=== PATIENT | male | born 2000 | race Two or more races ===

== ENCOUNTER 2021-03-15 11:15 | Emergency (ER) | payer OTHER ==
[~2021-03-15 11:15] MED LIST: CYCLOBENZAPRINE5 MG PO; DELSYM30 MG/5 ML PO; FLONASE 0.05% N16 GM; IBUPROFEN600 MG PO; IBUPROFEN800 MG PO; KEFLEX CAP 500500 MG PO; NORFLEX 100 MG100 MG PO; Voltaren Gel 1 % TOP; ZOFRAN ODT 4 MG4 MG PO; ZYRTEC10 MG PO
[2021-03-15 11:40] LABS: HEMOGLOBIN 15.8 gm/dl (14.0-17.5); RED BLOOD COUNT 4.64 M/UL (4.20-5.50); WHITE BLOOD COUNT 15.3 K/UL (4.5-11.0)
[2021-03-15 12:17] LABS: BUN/CREATININE RATIO 12 (0-10)
[2021-03-15] MEDS ORDERED: ZITHROMAX250 MG PO (13:03)
== END 2021-03-15 13:36 | disposition home or self-care (01) ==
LOC: ER1 11:15
PROVIDERS: Emergency Medicine
DX: R05 Cough (principal); R07.9 Chest pain, unspecified; D72.829 Elevated white blood cell count, unspecified; F17.200 Nicotine dependence, unspecified, uncomplicated; Z20.822 Contact with and (suspected) exposure to COVID-19
CPT/HCPCS: 71045; 80053; 82550; 82553; 83874; 84484; 85025; 85379; 93005; 99285; U0002

== ENCOUNTER 2021-06-06 11:42 | Emergency (ER) | payer OTHER ==
[~2021-06-06 11:42] MED LIST changes: +ZITHROMAX250 MG PO
[2021-06-06 13:17] LABS: HEMOGLOBIN 14.8 gm/dl (14.0-17.5); RED BLOOD COUNT 4.54 M/UL (4.20-5.50); WHITE BLOOD COUNT 10.5 K/UL (4.5-11.0)
[2021-06-06 13:33] LABS: BUN/CREATININE RATIO 13 (0-10)
== END 2021-06-06 16:56 | disposition home or self-care (01) ==
LOC: ER1 11:42
PROVIDERS: Physician Assistant
DX: R06.02 Shortness of breath (principal); R07.9 Chest pain, unspecified; J45.909 Unspecified asthma, uncomplicated; F17.200 Nicotine dependence, unspecified, uncomplicated; Z20.822 Contact with and (suspected) exposure to COVID-19
CPT/HCPCS: 71045; 80053; 82550; 82553; 83874; 84484; 85025; 99285; U0002

== ENCOUNTER → 2021-07-12 | Outpatient (CLI) | payer OTHER | LOC: CT 07-02 09:00 → EXRD 08:08 | DX: R59.0 Localized enlarged lymph nodes (principal); R10.9 Unspecified abdominal pain | CPT/HCPCS: 76536; Q9967 ==

== ENCOUNTER 2021-11-08 17:25 | Emergency (ER) | payer OTHER ==
[2021-11-08 18:50] LABS: HEMOGLOBIN 14.8 gm/dl (14.0-17.5); RED BLOOD COUNT 4.4 M/UL (4.20-5.50); WHITE BLOOD COUNT 15.6 K/UL (4.5-11.0)
[2021-11-08 19:18] LABS: BUN/CREATININE RATIO 21 (0-10)
== END 2021-11-08 22:57 | disposition home or self-care (01) ==
LOC: ER1 17:25
PROVIDERS: Physician Assistant
DX: F41.9 Anxiety disorder, unspecified (principal); R07.89 Other chest pain; J45.909 Unspecified asthma, uncomplicated; F17.200 Nicotine dependence, unspecified, uncomplicated
CPT/HCPCS: 71045; 80053; 82550; 82553; 83874; 84484; 85025; 93005; 99285

== ENCOUNTER → 2021-11-28 | Outpatient (CLI) | payer OTHER | LOC: HEART 5 11-21 10:30 | DX: R00.0 Tachycardia, unspecified (principal) ==

== ENCOUNTER 2021-12-04 18:45 | Emergency (ER) | payer OTHER ==
[2021-12-04 20:12] LABS: HEMOGLOBIN 15.6 gm/dl (14.0-17.5); RED BLOOD COUNT 4.73 M/UL (4.20-5.50); WHITE BLOOD COUNT 12.5 K/UL (4.5-11.0)
[2021-12-04 20:54] LABS: BUN/CREATININE RATIO 17 (0-10)
== END 2021-12-04 21:49 | disposition home or self-care (01) ==
LOC: ER1 18:45
PROVIDERS: Emergency Medicine
DX: R07.89 Other chest pain (principal); E87.6 Hypokalemia; F41.9 Anxiety disorder, unspecified
CPT/HCPCS: 71046; 80048; 82962; 85025; 93005; 96374; 96375; 99285; J1885; J2060; J2405

== ENCOUNTER → 2021-12-04 | Outpatient (CLI) | payer OTHER | LOC: KOH-I 14:30 | DX: R59.0 Localized enlarged lymph nodes (principal) | CPT/HCPCS: 76536 ==

== ENCOUNTER → 2021-12-18 | Day surgery (SDC) | payer OTHER | END | disposition home or self-care (01) | LOC: OR 07:12 | DX: K29.50 Unspecified chronic gastritis without bleeding (principal); R63.6 Underweight; F17.210 Nicotine dependence, cigarettes, uncomplicated; Z68.1 Body mass index [BMI] 19.9 or less, adult; Z20.822 Contact with and (suspected) exposure to COVID-19 | CPT/HCPCS: J2250; J2704; J7040 ==

== ENCOUNTER → 2021-12-28 | Emergency (ER) | payer OTHER ==
[2021-12-28 22:41] LABS: HEMOGLOBIN 14.9 gm/dl (14.0-17.5); RED BLOOD COUNT 4.51 M/UL (4.20-5.50); WHITE BLOOD COUNT 8.9 K/UL (4.5-11.0)
[2021-12-28 23:35] LABS: BUN/CREATININE RATIO 20 (0-10)
== END | disposition home or self-care (01) ==
LOC: ER1 21:13
PROVIDERS: Physician Assistant
DX: R07.9 Chest pain, unspecified (principal); R10.12 Left upper quadrant pain
CPT/HCPCS: 71045; 80053; 82150; 83690; 85025; 93005; 99285; Q9967

== ENCOUNTER 2022-01-13 22:04 | Emergency (ER) | payer OTHER ==
[2022-01-13 22:41] LABS: HEMOGLOBIN 15.1 gm/dl (14.0-17.5); RED BLOOD COUNT 4.46 M/UL (4.20-5.50); WHITE BLOOD COUNT 9.1 K/UL (4.5-11.0)
[2022-01-13 23:04] LABS: BUN/CREATININE RATIO 16 (0-10)
[2022-01-14] MEDS ORDERED: ZOFRAN ODT 4 MG4 MG PO (02:46)
[2022-01-14] MEDS ORDERED: BENTYL 20MG TAB20 MG PO (02:46)
== END 2022-01-14 03:00 | disposition home or self-care (01) ==
LOC: ER1 22:04
PROVIDERS: Family Medicine
DX: R10.31 Right lower quadrant pain (principal); F17.210 Nicotine dependence, cigarettes, uncomplicated; J45.909 Unspecified asthma, uncomplicated; R10.813 Right lower quadrant abdominal tenderness
CPT/HCPCS: 80053; 81001; 83605; 83690; 85025; 99284; Q9967

== ENCOUNTER → 2022-01-20 | Outpatient (CLI) | payer OTHER ==
[~2022-01-20] MED LIST changes: +BENTYL 20MG TAB20 MG PO
== END ==
LOC: RAD 11:23
DX: M54.2 Cervicalgia (principal); M25.512 Pain in left shoulder
CPT/HCPCS: 72040; 73030

== ENCOUNTER → 2022-02-05 | Outpatient (CLI) | payer OTHER | LOC: US 08:58 | DX: R59.0 Localized enlarged lymph nodes (principal) ==

== ENCOUNTER → 2022-03-28 | Outpatient (CLI) | payer OTHER | LOC: HEART 5 10:30 | DX: R07.9 Chest pain, unspecified (principal); R00.2 Palpitations | CPT/HCPCS: 93306 ==